=== PATIENT | male | born 1930 | race Caucasian/White ===

== ENCOUNTER 2018-09-11 16:19 | Inpatient (IN) | payer MEDICARE ==
[2018-09-11] MEDS ORDERED: Lorazepam 2 MG/ML VIAL ONE (16:41)
--- NOTE | 2018-09-11 17:22 | RAD ---
CHEST 1 VIEW PORTABLE: Date: 09/11/18 HISTORY: 88-year-old male with altered mental status. FINDINGS: There is fairly prominent rotation to the left. Elevated left hemidiaphragm appears stable. Old granu lomatous disease. No new confluent pneumonia, overt edema, or significant pleural effusion. IMPRESSION: Prominent elevation of the left hemidiaphragm, stable. Old granulomatous disease with some scattered chronic lung changes. Atherosclerosis of aorta with ectasia. No significant acute process. POS: [facility]
[2018-09-11 18:33] LABS: CKMB 9.4 ng/mL (0-6.6)
[2018-09-11] MEDS ORDERED: Acetaminophen 650 MG Suppository PR PRN (21:25)
[2018-09-11] MEDS ORDERED: Ondansetron PF 4 MG/2 ML Vial IVP PRN (21:25)
[2018-09-11] MEDS ORDERED: Acetaminophen 325 MG TAB PO PRN (21:25)
[2018-09-11] MEDS ORDERED: Ondansetron ODT 4 MG TAB PO PRN (21:25)
[2018-09-11] MEDS ORDERED: Zolpidem Tartrate 5 MG TAB PO PRN (21:25)
[2018-09-11 21:52] VITALS: BMI 22.4
[2018-09-11] MEDS: Sodium Chloride 0.9% 1,000 ML IV SCH (22:00)
[2018-09-11] MEDS: cefTRIAXone\\ROCEPHIN 2 GM in Sodium Chloride 0.9% 100 ML IVPB SCH (23:50)
--- NOTE | 2018-09-12 05:15 | HP ---
PRIMARY CARE PHYSICIAN: Dr. Kendall Haro. CHIEF COMPLAINT: Agitation, altered mental status, and UTI. HISTORY OF PRESENT ILLNESS: Mr. Mcginnis is a pleasantly confused 88-year-old male, who has a past medical history of hypertension, paroxysmal atrial fibrillation, currently on anticoagulation with Eliquis. He had presented to [facility] today with his due to altered mental status, the patient's found him on the floor earlier this morning and calling out and yelling. She states that this is not normal for him. She then took him to the ER for further evaluation. Upon arrival to [facility], his lab work was essentially unremarkable. However, urinalysis did show symptoms of UTI at that time. He was started on an IV ceftriaxone for antibiotic therapy. Due to his altered mental status, he was transferred to [facility] for further evaluation. During transport, the patient was given IV morphine along with IV Zofran. He was then given more IV morphine, IV Ativan and IV Zofran at [facility] ER. He was transferred out to the telemetry floor where he was seen and examined by myself. He was lying comfortably in bed with sitter at bedside. There are no family members present in the room. He had denied any chest pain, shortness of breath, or abdominal pain at that time. He could move all extremities; however, he had a noticeable small skin tear noticed on his right elbow. He had denied any pain at that time. He had denied abdominal pain, nausea, vomiting, or diarrhea. Further labs included TSH, which was unremarkable along with ammonia, which was also unremarkable. Blood cultures were ordered. He had also determined a surrogate decision maker would be his , and he requested to be full code at this time. PAST MEDICAL HISTORY: Hypertension, paroxysmal atrial fibrillation, benign prostatic hypertrophy, history of lung cancer, treated with chemotherapy and lobectomy. PAST SURGICAL HISTORY: Left lung lobectomy, chemotherapy, bilateral carpal tunnel, and lumbar spinal surgery. PSYCHIATRIC HISTORY: Denies any psychiatric history at this time. SOCIAL HISTORY: The patient lives at home with his . He denies alcohol, tobacco, or drug use. He states he quit smoking in 2009. ALLERGIES: NO KNOWN DRUG ALLERGIES. HOME MEDICATIONS: 1. Centrum Silver p.o. daily. 2. Crestor 20 mg p.o. daily. 3. Eliquis 5 mg p.o. daily. 4. Pepcid 40 mg p.o. daily. 5. Folic acid 5 mg p.o. daily. 6. . REVIEW OF SYSTEMS: CONSTITUTIONAL: The patient is pleasantly confused, he denies any pain, he denies any weight loss or weight gain. He denies fever or chills. HEENT: He denies fall. He denies hitting his head. He denies any eye changes including blurred vision, eye redness or discharge. He denies sore throat. He denies neck pain. CARDIOVASCULAR: He denies chest pain or palpitations, he, however reports history of paroxysmal atrial fibrillation, currently on anticoagulation with Eliquis. PULMONARY: Denies cough, shortness of breath, hemoptysis or wheezing. GASTROINTESTINAL: Denies abdominal pain. Did report some nausea earlier today; however, this improved after Zofran. Denies any vomiting, diarrhea, or change in stool. GENITOURINARY: Does report some frequency and urgency. He also reports some dysuria. The patient has a strong odor of urine. He denies any hematuria. SKIN: He denies any rashes or bleeding. Does report hurting his elbow at home and reports some diffuse bruising. MUSCULOSKELETAL: Denies any edema. Denies any pain. Does report injuring his right elbow. NEUROLOGICAL: He does not report any weakness, however, per spouse on admission, the patient is quite confused. PSYCHOLOGIC: Denies any suicidal or homicidal ideation. PHYSICAL EXAMINATION: VITAL SIGNS: BP 128/74, pulse 88, respirations 16, temp 97.5, and O2 saturations 100% on room air. GENERAL: The patient is alert, however, pleasantly confused, oriented to self. No acute distress noted. HEENT: Normocephalic, atraumatic. Hearing intact, however, slightly hard of hearing. Moist mucous membranes. Trachea midline. No masses noted. Pupils equal and reactive to light. Extraocular muscles intact. Sclerae anicteric. NECK: Soft, supple. No JVD. No bruit. CARDIOVASCULAR: Positive S1 and S2. Irregularly irregular rhythm. Rate controlled. No cyanosis. No clubbing. Radial and pedal pulses intact bilaterally. PULMONARY: Clear to auscultation bilaterally. No wheezes, no rhonchi, no rales. GENITOURINARY: No CVA tenderness, however, positive suprapubic tenderness to palpation. MUSCULOSKELETAL: Strength 5+ bilaterally in upper and lower extremities. Moves all extremities. SKIN: Warm and dry. Skin tear noted at right elbow. Diffuse bruising in upper extremities noted. NEUROLOGICAL: The patient is pleasantly confused. Cranial nerves 2 through 12 intact. No focal deficits. Moves all extremities. LABORATORY DATA: Laboratory data obtained at [facility], essentially unremarkable. CK-MB 9.4 here at [facility], troponin 0.036, TSH , ammonia 34. DIAGNOSTIC IMAGING: CT of head at [facility] was unremarkable and showed no acute intracranial abnormalities. Chest x-ray was unremarkable. ASSESSMENT AND PLAN: 1. Urinary tract infection. Check urine culture. Continue IV ceftriaxone and monitor the patient clinically. 2. Altered mental status, likely secondary to infection as above. Continue antibiotic therapy with IV ceftriaxone. Check blood cultures and urine cultures. Ammonia level unremarkable. TSH unremarkable. CTA showed no acute abnormality. Consult Speech evaluation for further evaluation of swallowing. 3. History of paroxysmal atrial fibrillation, currently stable and rate controlled. Continue on the patient's home medications including anticoagulation with Eliquis. Pending clinical findings. We will consider consult to Cardiology. 4. Hypertension, currently stable. Continue the patient's home medications. 5. Deep venous thrombosis prophylaxis with patient's home medication and anticoagulation with Eliquis. 6. Gastrointestinal prophylaxis with Pepcid. 7. Code status: Full code. 8. Surrogate decision maker is Mr. Mcginnis's , Ayala. Disposition and further medical management pending the patient's progress and further clinical findings. Job ID: [id number]
[2018-09-12 05:22] LABS: #Lymphocytes 1.6 thou/uL (1.20-3.40); #Monocytes 0.7 thou/uL (0.11-0.59); %Basophils 0.1 % (0.0-1.0); %Eosinophils 0.2 % (0.0-10.0); %Lymphocytes 19.6 % (21.0-51.0); %Monocytes 8.4 % (0.0-10.0); %Neutrophils 71.8 % (42.0-75.0); Hemoglobin 12.7 g/dL (14.0-18.0); Mean Corpuscular HGB CONC 33.2 g/dL (32.0-36.0); Mean Corpuscular Hemoglobin 32.4 pg (27.0-31.0); Mean Corpuscular Volume 97.4 fL (78.0-98.0); Mean Platelet Volume 7.8 fL (7.4-10.4); Platelet Count 134 thou/uL (130-400); RBC Distribution Width 13.1 % (11.5-14.5); Red Blood Cell (RBC) Count 3.92 mill/uL (4.70-6.10); White Blood Cell (WBC) Count 8.4 thou/uL (4.8-10.8)
[2018-09-12 05:41] LABS: Anion Gap 12 mmol/L (10-20); BUN (Urea Nitrogen) 23 mg/dL (8.4-25.7); Calc. Creatinine Clearance 51 mL/min (70-130); Calcium 9.3 mg/dL (7.8-10.44); Carbon Dioxide 24 mmol/L (23-31); Chloride 110 mmol/L (98-107); Estimated GFR-MDRD 72; Glucose 109 mg/dL (83-110); Potassium 4.1 mmol/L (3.5-5.1); Sodium 142 mmol/L (136-145)
[2018-09-12] MEDS: Famotidine 20 MG TAB PO SCH ×2 (08:32→19:37)
[2018-09-12] MEDS ORDERED: Famotidine/PF 20 mg/2ml Vial SLOW IVP SCH (09:00)
[2018-09-12] MEDS ORDERED: Prevnar 13-Val Conj/PF 0.5 ML SYRINGE IM ONE (09:00)
[2018-09-12] MEDS ORDERED: traMADol HCl 50 MG TAB PO SCH (09:00)
[2018-09-12] MEDS ORDERED: Enoxaparin Sodium 40 MG/0.4 ML SYRINGE SC SCH (09:00)
[2018-09-12 09:48] LABS: Magnesium 2.1 mg/dL (1.6-2.6)
[2018-09-12 09:49] LABS: ALT (SGPT) 11 U/L (8-55); AST (SGOT) 38 U/L (5-34); Albumin 3.4 g/dL (3.4-4.8); Alkaline Phosphatase 75 U/L (40-150); Bilirubin, Direct 0.5 mg/dL (0.1-0.3); Bilirubin, Total 0.8 mg/dL (0.2-1.2); Phosphorus 3.3 mg/dL (2.3-4.7); Protein, Total 6.3 g/dL (5.8-8.1)
[2018-09-12] MEDS ORDERED: Apixaban 5 MG TAB PO SCH (10:15)
[2018-09-12] MEDS ORDERED: Diabetic Tussin 200 MG/10 ML UDCUP PO PRN (10:17)
[2018-09-12] MEDS ORDERED: Eucerin (Mineral Oil/Petrolatum,White) 30 gm Jar TOP PRN (10:17)
[2018-09-12] MEDS ORDERED: Senokot S 8.6-50 MG TAB PO SCH (10:30)
[2018-09-12] MEDS ORDERED: Cyanocobalamin (Vitamin B-12) 1,000 MCG TAB PO SCH (11:45)
--- NOTE | 2018-09-12 12:50 | PRG ---
DATE OF SERVICE: 09/12/2018 SUBJECTIVE: Mr. Mcginnis is an 88-year-old male with paroxysmal atrial fibrillation, benign prostatic hypertrophy, presented to the emergency room with altered mentation at [place]. CT of brain was negative. Urinalysis showed 50 to 100 wbc's with 1+ bacteria. He received 1 g Rocephin and was started on IV fluids. He also received a total of 10 mg IV morphine at that facility for pain. He was transferred to this emergency room. The patient has a sitter at the bedside. His confusion has somewhat improved. He denies any pain at this time. No fevers, chills, headache, double vision, blurring of vision, or focal weakness reported. OBJECTIVE: VITAL SIGNS: Temperature 98.2, pulse of 67, respirations of 16, blood pressure of 123/50, and O2 saturation of 98% on room air. GENERAL: An 88-year-old male, in no apparent distress. LUNGS: Clear to auscultation bilaterally. No wheezing, rales, or rhonchi appreciated. HEART: S1 and S2 present. Regular rate and rhythm. No heaves or pulsation. There was a 2/6 systolic murmur over the mitral area. ABDOMEN: Soft and nontender. Bowel sounds present. No rebound or guarding appreciated. EXTREMITIES: No edema or calf tenderness. NEUROLOGIC: Grossly nonfocal. The patient is following commands appropriately. PSYCHIATRY: The patient is alert and awake with intermittent confusion. SKIN: Warm and dry. LYMPH NODES: No palpable lymph nodes in the neck. REVIEW OF SYSTEMS: All other review of systems reviewed and were found negative. Again, the review of system was somewhat limited due to intermittent confusion. LABORATORY FINDINGS: WBC 8.4 with hemoglobin 12.7, platelet 134. His CK is 1376. Troponin yesterday was 0.036. Repeat troponin was negative. Creatinine 0.98 with BUN 23, vitamin B12 was 284, folic acid in normal range. Telemetry monitoring by my review showed atrial fibrillation. Chest x-ray by my review was negative for infiltrate or edema. IMPRESSION: 1. Toxic metabolic encephalopathy, secondary to urinary tract infection. 2. Chronic atrial fibrillation, on anticoagulation. 3. Gastroesophageal reflux disease. 4. Vitamin B12 deficiency. 5. Hypertension. 6. Elevated troponin, secondary to demand ischemia. 7. Rhabdomyolysis, probably secondary to a recent fall according to the spouse. 8. Chronic kidney disease, stage 2. 9. Anemia, probably chronic or due to vitamin B12 deficiency. PLAN: The patient will be monitored on the medical floor. We will repeat labs in a.m. including CK. All of his home medications were restarted including Eliquis, Pepcid, and Toprol-XL. We will hold statins due to rhabdomyolysis. We will also reduce Toprol dose due to blood pressure on the low normal range. It is unclear whether he takes Flomax at home. We will check postvoid residual. We will continue IV ceftriaxone. We will add PT and OT. We can probably discontinue sitter. We will add neuro checks. We will replace vitamin B12. We will add Ensure. We will also change his diet to regular. Plan of care was discussed with the family in detail. They stated understanding. Job ID: [id number]
[2018-09-12] MEDS: Sodium Chloride 0.9% 1,000 ML IV SCH ×2 (13:18→23:49)
[2018-09-12] MEDS: Acetaminophen 325 MG TAB PO SCH ×2 (16:17→19:36)
[2018-09-12 16:28] LABS: Hemoglobin 12.7 g/dL (14.0-18.0); Platelet Count 138 thou/uL (130-400)
[2018-09-12] MEDS ORDERED: Lorazepam 2 MG/ML VIAL SLOW IVP SCH (19:30)
[2018-09-12] MEDS: Apixaban 5 MG TAB PO SCH (19:37)
[2018-09-12] MEDS: Senokot S 8.6-50 MG TAB PO SCH (19:37)
[2018-09-12] MEDS ORDERED: Finasteride 5 MG TAB PO SCH (21:00)
[2018-09-12] MEDS ORDERED: Tamsulosin HCl 0.4 MG CAP PO SCH (21:00)
[2018-09-12] MEDS ORDERED: Rosuvastatin 20 MG TAB PO SCH (21:00)
[2018-09-12] MEDS: cefTRIAXone\\ROCEPHIN 2 GM in Sodium Chloride 0.9% 100 ML IVPB SCH (23:46)
[2018-09-13] MEDS: Lorazepam 2 MG/ML VIAL SLOW IVP PRN ×2 (01:19→07:10)
[2018-09-13 05:22] LABS: Anion Gap 10 mmol/L (10-20); BUN (Urea Nitrogen) 18 mg/dL (8.4-25.7); CK (CPK) 1402 U/L (30-200); Calc. Creatinine Clearance 64 mL/min (70-130); Calcium 8.9 mg/dL (7.8-10.44); Carbon Dioxide 24 mmol/L (23-31); Chloride 110 mmol/L (98-107); Estimated GFR-MDRD Greater than 90; Glucose 118 mg/dL (83-110); Potassium 3.8 mmol/L (3.5-5.1); Sodium 140 mmol/L (136-145)
[2018-09-13 05:51] LABS: #Monocytes 0.8 thou/uL (0.11-0.59); #Neutrophils 5.7 thou/uL (1.40-6.50); %Basophils 0.2 % (0.0-1.0); %Eosinophils 0.4 % (0.0-10.0); %Lymphocytes 13.7 % (21.0-51.0); %Monocytes 10.7 % (0.0-10.0); Band 5 % (5-11); Hemoglobin 11.9 g/dL (14.0-18.0); Lymphocytes 12 % (21-51); MDiff Complete? YES; Mean Corpuscular HGB CONC 33.2 g/dL (32.0-36.0); Mean Corpuscular Hemoglobin 31.9 pg (27.0-31.0); Mean Corpuscular Volume 96.1 fL (78.0-98.0); Mean Platelet Volume 8.2 fL (7.4-10.4); Monocytes 10 % (0-10); Neutrophil 72 % (42-75); PLT Morphology Comment Appears Decreased; Platelet Count 116 thou/uL (130-400); RBC Distribution Width 12.8 % (11.5-14.5); RBC Morphology Normal; Reactive Lymphocytes 1 % (0-10); Red Blood Cell (RBC) Count 3.73 mill/uL (4.70-6.10); White Blood Cell (WBC) Count 7.5 thou/uL (4.8-10.8)
[2018-09-13] MEDS: Apixaban 5 MG TAB PO SCH ×2 (08:49→19:25)
[2018-09-13] MEDS: Multivit, Therapeutic 1 TAB PO SCH (08:51)
[2018-09-13] MEDS: Famotidine 20 MG TAB PO SCH ×2 (08:51→19:25)
[2018-09-13] MEDS: Senokot S 8.6-50 MG TAB PO SCH ×2 (08:51→19:25)
[2018-09-13] MEDS: Acetaminophen 325 MG TAB PO SCH ×3 (08:52→19:25)
[2018-09-13] MEDS: Cyanocobalamin (Vitamin B-12) 1,000 MCG TAB PO SCH (08:52)
[2018-09-13] MEDS: Polyethylene Glycol 3350 17 GM Packet PO SCH (08:54)
--- NOTE | 2018-09-13 13:50 | EKG ---
Test Reason : Blood Pressure : / mmHG Vent. Rate : 076 BPM Atrial Rate : 083 BPM P-R Int : 000 ms QRS Dur : 074 ms QT Int : 380 ms P-R-T Axes : 000 016 -18 degrees QTc Int : 427 ms Atrial fibrillation Confirmed by ROXANN BACA [id number]), publication editor DWAINE BARRERA ([id number]) on 09/13/2018 1:49:55 PM Referred By: Confirmed By:ROXANN BACA
--- NOTE | 2018-09-13 14:14 | PDOC.PN ---
- Subjective Encounter Start Date: 09/13/18 Encounter Start Time: 08:00 Patient seen and examined for Encephalopathy from UTI. No new complaints. Overnight events noted. - Objective Resuscitation Status - Order Detail: 09/11/18 21:25 Resuscitation Status Routine Resuscitation Status: FULL: Full Resuscitation MAR Reviewed: Yes Vital Signs & Weight: Vital Signs (12 hours) Temp Pulse Pulse Resp BP BP Pulse Ox 09/13/18 12:37 97.8 F 73 16 135/79 96 09/13/18 09:48 75 145/78 H 09/13/18 08:00 75 L 09/13/18 07:48 96.8 F L 75 18 151/77 H 92 L 09/13/18 05:34 98.6 F 68 16 154/88 H 93 L Weight Weight 156 lb 1.6 oz I&O: 09/12/18 09/13/18 09/14/18 06:59 06:59 06:59 Intake Total 550 Output Total 150 88 Balance 400 -88 Result Diagrams: 09/13/18 04:26 09/13/18 04:26 Phys Exam - Physical Examination Constitutional: NAD Respiratory: no wheezing, no rhonchi Cardiovascular: RRR, no rub Gastrointestinal: soft, non-tender, positive bowel sounds Musculoskeletal: no edema Neurological: moves all 4 limbs Dx/Plan - Plan IMPRESSION: 1. Toxic metabolic encephalopathy, secondary to UTI. 2. Chronic atrial fibrillation, on anticoagulation. 3. Gastroesophageal reflux disease. 4. Vitamin B12 deficiency. 5. Hypertension. 6. Elevated troponin, secondary to demand ischemia. 7. Rhabdomyolysis, probably secondary to a recent fall according to the spouse. 8. Chronic kidney disease, stage 2. 9. Anemia, probably chronic or due to vitamin B12 deficiency. PLAN: Will obtain urine culture from [facility] Cont IV Atbx Cont IV fluids DC Flomax - Post void was 124 ml Change Toprol XL to 50 mg daily (home dose) Cont current meds as below AM labs including CK Microbiology 09/12/18 23:34 Urine Straight Catheter Urine Culture - Preliminary NO GROWTH AT 12 HOURS Review of Systems - Review of Systems Respiratory: negative: Cough, Dry, Shortness of Breath, Hemoptysis, SOB with Excertion, Pleuritic Pain, Sputum, Wheezing Cardiovascular: negative: chest pain, palpitations, orthopnea, paroxysmal nocturnal dyspnea, edema, light headedness, other - Medications/Allergies Allergies/Adverse Reactions: Allergies Allergy/AdvReac Type Severity Reaction Status Date / Time No Known Allergies Allergy Verified 12/19/16 10:46 Medications: Current Medications Acetaminophen (Tylenol) 650 mg PO Q4H PRN PRN Reason: Headache/Fever/Mild Pain (1-3) Acetaminophen (Tylenol) 650 mg [place] Q4H PRN PRN Reason: Headache/Fever/Mild Pain (1-3) Acetaminophen (Tylenol) 650 mg PO TID [facility] Last Admin: 09/13/18 08:52 Dose: 650 mg Apixaban (Eliquis) 5 mg PO BID [facility] Last Admin: 09/13/18 08:49 Dose: 5 mg Cyanocobalamin (Vitamin B-12) 1,000 mcg PO DAILY [facility] Last Admin: 09/13/18 08:52 Dose: 1,000 mcg Famotidine (Pepcid) 20 mg PO BID [facility] Last Admin: 09/13/18 08:51 Dose: 20 mg Guaifenesin (Robitussin Sf) 200 mg PO Q4H PRN PRN Reason: Cough Sodium Chloride (Normal Saline 0.9%) 1,000 mls @ 70 mls/hr IV .[id number] [facility] Last Admin: 09/12/18 23:49 Dose: 1,000 mls Ceftriaxone Sodium 2 gm/ (Sodium Chloride) 100 mls @ 200 mls/hr IVPB Q24HR@ 2300 [facility] Last Admin: 09/12/18 23:46 Dose: 100 mls Lorazepam (Ativan) 0.5 mg SLOW IVP Q6H PRN PRN Reason: Anxiety/Agitation Last Admin: 09/13/18 07:10 Dose: 0.5 mg Metoprolol Succinate (Toprol Xl) 50 mg PO DAILY [facility] Last Admin: 09/13/18 08:54 Dose: 50 mg Mineral Oil/White Petrolatum (Eucerin Cream) 0 gm TOP BIDPRN PRN PRN Reason: Dry Skin Multivitamins (Theragran) 1 tab PO DAILY [facility] Last Admin: 09/13/18 08:51 Dose: 1 tab Ondansetron HCl (Zofran Odt) 4 mg PO Q6H PRN PRN Reason: Nausea/Vomiting Ondansetron HCl (Zofran) 4 mg IVP Q6H PRN PRN Reason: Nausea/Vomiting Polyethylene Glycol (Miralax) 17 gm PO DAILY [facility] Last Admin: 09/13/18 08:54 Dose: 17 gm Senna/Docusate Sodium (Senokot S) 1 tab PO BID [facility] Last Admin: 09/13/18 08:51 Dose: 1 tab Sodium Chloride (Flush - Normal Saline) 10 ml IVF Q12HR [facility] Last Admin: 09/13/18 09:07 Dose: Not Given Sodium Chloride (Flush - Normal Saline) 10 ml IVF PRN PRN PRN Reason: Saline Flush Tamsulosin HCl (Flomax) 0.4 mg PO HS [facility] Last Admin: 09/12/18 19:37 Dose: 0.4 mg
[2018-09-13] MEDS: Sodium Chloride 0.9% 1,000 ML IV SCH (17:54)
[2018-09-14] MEDS: cefTRIAXone\\ROCEPHIN 2 GM in Sodium Chloride 0.9% 100 ML IVPB SCH ×2 (00:03→23:27)
[2018-09-14] MEDS: Sodium Chloride 0.9% 1,000 ML IV SCH ×2 (06:12→23:27)
[2018-09-14 06:54] LABS: #Eosinphils 0.1 thou/uL (0.0-0.7); #Monocytes 0.5 thou/uL (0.11-0.59); #Neutrophils 5.3 thou/uL (1.40-6.50); %Basophils 0.2 % (0.0-1.0); %Eosinophils 1.7 % (0.0-10.0); %Lymphocytes 14.6 % (21.0-51.0); %Monocytes 7.6 % (0.0-10.0); %Neutrophils 75.8 % (42.0-75.0); Mean Corpuscular HGB CONC 33.3 g/dL (32.0-36.0); Mean Corpuscular Hemoglobin 32.3 pg (27.0-31.0); Mean Platelet Volume 8.1 fL (7.4-10.4); Platelet Count 130 thou/uL (130-400); RBC Distribution Width 12.9 % (11.5-14.5); Red Blood Cell (RBC) Count 3.71 mill/uL (4.70-6.10); White Blood Cell (WBC) Count 6.9 thou/uL (4.8-10.8)
[2018-09-14 07:13] LABS: Anion Gap 9 mmol/L (10-20); BUN (Urea Nitrogen) 14 mg/dL (8.4-25.7); CK (CPK) 1078 U/L (30-200); Calc. Creatinine Clearance 69 mL/min (70-130); Calcium 8.8 mg/dL (7.8-10.44); Carbon Dioxide 26 mmol/L (23-31); Chloride 110 mmol/L (98-107); Estimated GFR-MDRD Greater than 90; Glucose 117 mg/dL (83-110); Magnesium 1.9 mg/dL (1.6-2.6); Potassium 3.7 mmol/L (3.5-5.1); Sodium 141 mmol/L (136-145)
[2018-09-14] MEDS: Apixaban 5 MG TAB PO SCH ×2 (08:48→20:09)
[2018-09-14] MEDS: Acetaminophen 325 MG TAB PO SCH ×3 (08:49→20:08)
[2018-09-14] MEDS: Multivit, Therapeutic 1 TAB PO SCH (08:49)
[2018-09-14] MEDS: Famotidine 20 MG TAB PO SCH ×2 (08:49→20:08)
[2018-09-14] MEDS: Polyethylene Glycol 3350 17 GM Packet PO SCH (08:49)
[2018-09-14] MEDS: Cyanocobalamin (Vitamin B-12) 1,000 MCG TAB PO SCH (08:49)
[2018-09-14] MEDS: Senokot S 8.6-50 MG TAB PO SCH ×2 (08:49→20:09)
--- NOTE | 2018-09-14 15:01 | RAD ---
RADIOGRAPH LEFT HIP 2 VIEWS: DATE: 09/14/2018. HISTORY: An 88-year-old male with traumatic left hip pain after a fall. FINDINGS: No fracture is identified. However, the diffuse osteopenia could obscure a nondisplaced or minimally displaced fracture. Femoral head contour is maintained. There is diffuse moderate hip joint space n arrowing. No subcapital osteophytes or acetabular osteophytes. IMPRESSION: 1. No displaced fracture identified. 2. Osteopenia. 3. Articular cartilage thinning of the left hip. POS: [facility]
[2018-09-14] MEDS ORDERED: traMADol HCl 50 MG TAB PO PRN (16:47)
--- NOTE | 2018-09-14 22:08 | PDOC.PN ---
- Subjective Encounter Start Date: 09/14/18 Encounter Start Time: 08:30 Patient seen and examined for UTI/Encephalopathy. Mentation improving. Left hip pain since last night. No other complaints. No overnight events - Objective Resuscitation Status - Order Detail: 09/11/18 21:25 Resuscitation Status Routine Resuscitation Status: FULL: Full Resuscitation MAR Reviewed: Yes Vital Signs & Weight: Vital Signs (12 hours) Temp Pulse Resp BP Pulse Ox 09/14/18 21:42 94 L 09/14/18 20:00 97.8 F 64 20 137/71 94 L Weight Weight 156 lb 1.6 oz I&O: 09/13/18 09/14/18 09/15/18 06:59 06:59 06:59 Intake Total 1166 1255 Output Total 88 75 125 Balance -88 1091 1130 Result Diagrams: 09/14/18 06:16 09/14/18 06:16 Phys Exam - Physical Examination Constitutional: NAD Respiratory: no wheezing, no rhonchi Cardiovascular: RRR, no rub Gastrointestinal: soft, non-tender, positive bowel sounds Musculoskeletal: no edema Neurological: non-focal, moves all 4 limbs Psychiatric: A&O x 3 Skin: no rash Dx/Plan - Plan IMPRESSION: 1. Toxic metabolic encephalopathy, secondary to UTI. improving 2. Chronic atrial fibrillation, on anticoagulation. 3. Gastroesophageal reflux disease. 4. Vitamin B12 deficiency. 5. Hypertension. 6. Elevated troponin, secondary to demand ischemia. 7. Rhabdomyolysis, probably secondary to a recent fall - CK improving 8. Chronic kidney disease, stage 2. 9. Anemia, probably chronic or due to vitamin B12 deficiency. 10. Left hip pain prob due to recent fall. PLAN: Await urine culture report from [facility] Cont IV Atbx/IV fluids Cont Toprol XL and other meds as below AM labs Left hip XR Review of Systems - Review of Systems Respiratory: negative: Cough, Dry, Shortness of Breath, Hemoptysis, SOB with Excertion, Pleuritic Pain, Sputum, Wheezing Cardiovascular: negative: chest pain, palpitations, orthopnea, paroxysmal nocturnal dyspnea, edema, light headedness, other - Medications/Allergies Allergies/Adverse Reactions: Allergies Allergy/AdvReac Type Severity Reaction Status Date / Time No Known Allergies Allergy Verified 12/19/16 10:46 Medications: Current Medications Acetaminophen (Tylenol) 650 mg PO Q4H PRN PRN Reason: Headache/Fever/Mild Pain (1-3) Last Admin: 09/14/18 06:11 Dose: 650 mg Acetaminophen (Tylenol) 650 mg [place] Q4H PRN PRN Reason: Headache/Fever/Mild Pain (1-3) Acetaminophen (Tylenol) 650 mg PO TID [facility] Last Admin: 09/14/18 20:08 Dose: 650 mg Apixaban (Eliquis) 5 mg PO BID [facility] Last Admin: 09/14/18 20:09 Dose: 5 mg Cyanocobalamin (Vitamin B-12) 1,000 mcg PO DAILY [facility] Last Admin: 09/14/18 08:49 Dose: 1,000 mcg Famotidine (Pepcid) 20 mg PO BID [facility] Last Admin: 09/14/18 20:08 Dose: 20 mg Guaifenesin (Robitussin Sf) 200 mg PO Q4H PRN PRN Reason: Cough Sodium Chloride (Normal Saline 0.9%) 1,000 mls @ 70 mls/hr IV .[id number] [facility] Last Admin: 09/14/18 06:12 Dose: 1,000 mls Ceftriaxone Sodium 2 gm/ (Sodium Chloride) 100 mls @ 200 mls/hr IVPB Q24HR@ 2300 [facility] Last Admin: 09/14/18 00:03 Dose: 100 mls Lorazepam (Ativan) 0.5 mg SLOW IVP Q6H PRN PRN Reason: Anxiety/Agitation Last Admin: 09/13/18 07:10 Dose: 0.5 mg Metoprolol Succinate (Toprol Xl) 50 mg PO DAILY [facility] Last Admin: 09/14/18 08:48 Dose: 50 mg Mineral Oil/White Petrolatum (Eucerin Cream) 0 gm TOP BIDPRN PRN PRN Reason: Dry Skin Multivitamins (Theragran) 1 tab PO DAILY [facility] Last Admin: 09/14/18 08:49 Dose: 1 tab Ondansetron HCl (Zofran Odt) 4 mg PO Q6H PRN PRN Reason: Nausea/Vomiting Ondansetron HCl (Zofran) 4 mg IVP Q6H PRN PRN Reason: Nausea/Vomiting Polyethylene Glycol (Miralax) 17 gm PO DAILY [facility] Last Admin: 09/14/18 08:49 Dose: 17 gm Senna/Docusate Sodium (Senokot S) 1 tab PO BID [facility] Last Admin: 09/14/18 20:09 Dose: 1 tab Sodium Chloride (Flush - Normal Saline) 10 ml IVF Q12HR [facility] Last Admin: 09/14/18 20:12 Dose: Not Given Sodium Chloride (Flush - Normal Saline) 10 ml IVF PRN PRN PRN Reason: Saline Flush Tramadol HCl (Ultram) 50 mg PO Q8H PRN PRN Reason: Pain Last Admin: 09/14/18 17:55 Dose: 50 mg
[2018-09-15 07:30] LABS: Anion Gap 9 mmol/L (10-20); BUN (Urea Nitrogen) 10 mg/dL (8.4-25.7); CK (CPK) 735 U/L (30-200); Calc. Creatinine Clearance 70 mL/min (70-130); Calcium 8.6 mg/dL (7.8-10.44); Carbon Dioxide 24 mmol/L (23-31); Chloride 107 mmol/L (98-107); Estimated GFR-MDRD Greater than 90; Glucose 111 mg/dL (83-110); Potassium 3.7 mmol/L (3.5-5.1); Sodium 136 mmol/L (136-145)
[2018-09-15] MEDS: Cyanocobalamin (Vitamin B-12) 1,000 MCG TAB PO SCH (07:58)
[2018-09-15] MEDS: Apixaban 5 MG TAB PO SCH ×2 (07:58→20:58)
[2018-09-15] MEDS: Famotidine 20 MG TAB PO SCH ×2 (07:58→20:59)
[2018-09-15] MEDS: Acetaminophen 325 MG TAB PO SCH ×3 (07:58→20:58)
[2018-09-15] MEDS: Multivit, Therapeutic 1 TAB PO SCH (07:58)
[2018-09-15] MEDS: Senokot S 8.6-50 MG TAB PO SCH ×2 (07:58→20:59)
[2018-09-15] MEDS: Polyethylene Glycol 3350 17 GM Packet PO SCH (07:59)
[2018-09-15] MEDS: Sodium Chloride 0.9% 1,000 ML IV SCH ×2 (20:05)
--- NOTE | 2018-09-15 22:35 | PDOC.PN ---
- Subjective Encounter Start Date: 09/15/18 Encounter Start Time: 10:15 Patient seen and examined for UTI/Encephalopathy. Mentation improving. No new complaints. No overnight events - Objective Resuscitation Status - Order Detail: 09/11/18 21:25 Resuscitation Status Routine Resuscitation Status: FULL: Full Resuscitation MAR Reviewed: Yes Vital Signs & Weight: Vital Signs (12 hours) Temp Pulse Resp BP Pulse Ox 09/15/18 20:00 98.3 F 71 20 175/79 H 96 Weight Weight 156 lb 1.6 oz I&O: 09/14/18 09/15/18 09/16/18 06:59 06:59 06:59 Intake Total 1166 1255 1360 Output Total 75 125 Balance 1091 1130 1360 Result Diagrams: 09/14/18 06:16 09/15/18 06:29 Phys Exam - Physical Examination Constitutional: NAD Respiratory: no wheezing, no rhonchi Cardiovascular: RRR, no rub Gastrointestinal: soft, non-tender, positive bowel sounds Musculoskeletal: no edema Neurological: moves all 4 limbs Dx/Plan - Plan 1. Toxic metabolic encephalopathy, secondary to UTI. improving 2. Chronic atrial fibrillation, on anticoagulation. 3. Gastroesophageal reflux disease. 4. Vitamin B12 deficiency. 5. Hypertension. 6. Elevated troponin, secondary to demand ischemia. 7. Rhabdomyolysis, probably secondary to a recent fall - CK improving 8. Chronic kidney disease, stage 2. 9. Anemia, probably chronic or due to vitamin B12 deficiency. 10. Left hip pain prob due to recent fall. XR negative for fractures PLAN: No urine culture sent at [facility] Cont IV Atbx/IV fluids Cont Toprol XL and other meds as below SNF eval Stable for dc in AM if no overnight events Microbiology 09/12/18 23:34 Urine Straight Catheter Urine Culture - Final Presumptive Amada Krusei Review of Systems - Review of Systems Respiratory: negative: Cough, Dry, Shortness of Breath, Hemoptysis, SOB with Excertion, Pleuritic Pain, Sputum, Wheezing Cardiovascular: negative: chest pain, palpitations, orthopnea, paroxysmal nocturnal dyspnea, edema, light headedness, other - Medications/Allergies Allergies/Adverse Reactions: Allergies Allergy/AdvReac Type Severity Reaction Status Date / Time No Known Allergies Allergy Verified 12/19/16 10:46 Medications: Current Medications Acetaminophen (Tylenol) 650 mg PO Q4H PRN PRN Reason: Headache/Fever/Mild Pain (1-3) Last Admin: 09/14/18 06:11 Dose: 650 mg Acetaminophen (Tylenol) 650 mg [place] Q4H PRN PRN Reason: Headache/Fever/Mild Pain (1-3) Acetaminophen (Tylenol) 650 mg PO TID [facility] Last Admin: 09/15/18 20:58 Dose: 650 mg Apixaban (Eliquis) 5 mg PO BID [facility] Last Admin: 09/15/18 20:58 Dose: 5 mg Cyanocobalamin (Vitamin B-12) 1,000 mcg PO DAILY [facility] Last Admin: 09/15/18 07:58 Dose: 1,000 mcg Famotidine (Pepcid) 20 mg PO BID [facility] Last Admin: 09/15/18 20:59 Dose: 20 mg Guaifenesin (Robitussin Sf) 200 mg PO Q4H PRN PRN Reason: Cough Ceftriaxone Sodium 2 gm/ (Sodium Chloride) 100 mls @ 200 mls/hr IVPB Q24HR@ 2300 [facility] Last Admin: 09/14/18 23:27 Dose: 100 mls Sodium Chloride (Normal Saline 0.9%) 1,000 mls @ 50 mls/hr IV .Q20H [facility] Last Admin: 09/15/18 20:05 Dose: Not Given Lorazepam (Ativan) 0.5 mg SLOW IVP Q6H PRN PRN Reason: Anxiety/Agitation Last Admin: 09/13/18 07:10 Dose: 0.5 mg Metoprolol Succinate (Toprol Xl) 50 mg PO DAILY [facility] Last Admin: 09/15/18 07:58 Dose: 50 mg Mineral Oil/White Petrolatum (Eucerin Cream) 0 gm TOP BIDPRN PRN PRN Reason: Dry Skin Multivitamins (Theragran) 1 tab PO DAILY [facility] Last Admin: 09/15/18 07:58 Dose: 1 tab Ondansetron HCl (Zofran Odt) 4 mg PO Q6H PRN PRN Reason: Nausea/Vomiting Ondansetron HCl (Zofran) 4 mg IVP Q6H PRN PRN Reason: Nausea/Vomiting Polyethylene Glycol (Miralax) 17 gm PO DAILY [facility] Last Admin: 09/15/18 07:59 Dose: 17 gm Senna/Docusate Sodium (Senokot S) 1 tab PO BID [facility] Last Admin: 09/15/18 20:59 Dose: 1 tab Sodium Chloride (Flush - Normal Saline) 10 ml IVF Q12HR [facility] Last Admin: 09/15/18 20:59 Dose: Not Given Sodium Chloride (Flush - Normal Saline) 10 ml IVF PRN PRN PRN Reason: Saline Flush Tramadol HCl (Ultram) 50 mg PO Q8H PRN PRN Reason: Pain Last Admin: 09/14/18 17:55 Dose: 50 mg
[2018-09-16] MEDS: cefTRIAXone\\ROCEPHIN 2 GM in Sodium Chloride 0.9% 100 ML IVPB SCH (00:24)
[2018-09-16] MEDS: Apixaban 5 MG TAB PO SCH (07:53)
[2018-09-16] MEDS: Multivit, Therapeutic 1 TAB PO SCH (07:53)
[2018-09-16] MEDS: Senokot S 8.6-50 MG TAB PO SCH (07:54)
[2018-09-16] MEDS: Acetaminophen 325 MG TAB PO SCH (07:54)
[2018-09-16] MEDS: Cyanocobalamin (Vitamin B-12) 1,000 MCG TAB PO SCH (07:55)
[2018-09-16] MEDS: Polyethylene Glycol 3350 17 GM Packet PO SCH (07:55)
[2018-09-16] MEDS: Famotidine 20 MG TAB PO SCH (07:55)
[2018-09-16] MEDS: Sodium Chloride 0.9% 1,000 ML IV SCH (07:56)
[2018-09-16 14:39] VITALS: BP 125/73; TEMP 97.5
--- NOTE | 2018-09-16 18:46 | DIS ---
DATE OF ADMISSION: 09/11/2018 DATE OF DISCHARGE: 09/16/2018 DISCHARGE DISPOSITION: Home. FOLLOWUP: 1. Follow up with primary care physician, Dr. Kendall Haro in 1 week. 2. Home Health Care through [facility] has been arranged. DISCHARGE CONDITION: The patient was seen and examined on the day of discharge. Denies any new complaints. No chest pain, shortness of breath, or palpitations. DISCHARGE MEDICATIONS: 1. Vitamin B12 of 1000 mcg daily. 2. Omnicef 300 mg twice a day for 5 days. All other home medications were left unchanged. BRIEF HOSPITAL COURSE: The patient is an 88-year-old male with hypertension and paroxysmal atrial fibrillation, presented to the emergency room with altered mentation at [facility]. He was found to have urinary tract infection. He was started on antibiotics and was transferred to this facility. Please note that urine cultures were not sent at [facility]. Please refer to the history and physical for further details. The patient was admitted to the hospital with a diagnosis of altered mentation secondary to UTI. He was started on IV ceftriaxone with good improvement in his symptoms. The urine culture at this facility after 24 hours of antibiotics was essentially negative except for 10,000 to 25,000 colonies of Amada. He received total of 4 to 5 days of IV antibiotics. We will change to ceftriaxone. His mentation is back to baseline. Plan of care was discussed with the patient and the family in detail. They stated understanding. He was also found to have vitamin B12 level of 284, for which vitamin B12 has been started. Intramuscular injections were avoided due to chronic anticoagulation. He was also found to have rhabdomyolysis with CK of 1376 on admission. His CK yesterday was 735. He will benefit from repeat labs after 1 week. FINAL DIAGNOSES: 1. Toxic metabolic encephalopathy secondary to urinary tract infection. Please note, urine cultures were not sent at [facility]. 2. Chronic atrial fibrillation, on anticoagulation. 3. Gastroesophageal reflux disease. 4. Vitamin B12 deficiency. 5. Hypertension. 6. Rhabdomyolysis, probably secondary to recent fall. 7. Left hip pain, probably secondary to recent fall, improving. X-rays were negative. 8. Chronic anemia. 9. Chronic kidney disease, stage 2. 10. Elevated troponin secondary to demand ischemia. PLAN: Plan of care was discussed with the patient and the family in detail. They stated understanding. Job ID: [id number]
== END 2018-09-16 15:05 | disposition home health service (06) | DRG 689 ==
LOC: ERS 16:19 → 2NO 21:12 → T4-B 09-12 17:46
PROVIDERS: ADMIT Family Medicine; ATTEND Family Medicine
DX: N39.0 Urinary tract infection, site not specified (principal); G92 Toxic encephalopathy; I24.8 Other forms of acute ischemic heart disease; M62.82 Rhabdomyolysis; I48.0 Paroxysmal atrial fibrillation; N40.0 Benign prostatic hyperplasia without lower urinary tract symptoms; K21.9 Gastro-esophageal reflux disease without esophagitis; E53.8 Deficiency of other specified B group vitamins; I12.9 Hypertensive chronic kidney disease with stage 1 through stage 4 chronic kidney disease, or unspecified chronic kidney disease; N18.2 Chronic kidney disease, stage 2 (mild); M25.552 Pain in left hip; D64.9 Anemia, unspecified; Z79.01 Long term (current) use of anticoagulants; Z85.118 Personal history of other malignant neoplasm of bronchus and lung; Z87.891 Personal history of nicotine dependence
CPT/HCPCS: 36415; 71045; 80048; 80076; 82140; 82550; 82553; 82607; 82746; 83690; 83735; 84100; 84443; 84484; 85025; 87086; 93005; 96374; G8978-GP-CM; G8979-GP-CK; G8996-GN-CJ; G8997-GN-CI; J0696; J1650; J2060; J7050